=== PATIENT | male | born 1940 | race Caucasian/White ===

== ENCOUNTER 2017-08-02 10:03 | Inpatient (IN) | payer MEDICARE, BC ==
[~2017-08-02] VITALS: Ht 188 cm; Wt 90.2 kg
[~2017-08-02 10:03] MED LIST: NO HOME MEDICATIONS
[2017-09-02] VITALS (11 sets, daily range): BP systolic 100–147; BP diastolic 56–78; PULSE 50–76; TEMP 97.7
[2017-09-02] MEDS ORDERED: VITAMIN C500 MG PO (10:58)
[2017-09-02] MEDS ORDERED: FOLIC ACID 40400 MCG PO (10:58)
[2017-09-02] MEDS ORDERED: FERROUS SU325 MG/TAB PO (10:58)
[2017-09-03] VITALS (7 sets, daily range): BP systolic 118–159; BP diastolic 66–87; PULSE 66–102; TEMP 97.8–100
[2017-09-04 04:21] VITALS: BP 150/81; PULSE 91; TEMP 100.8; TEMP 99.1; TEMP 99.6
[2017-09-04 07:54] VITALS: BP 156/81; PULSE 94; TEMP 99.8
[2017-09-04 11:41] VITALS: BP 129/71; PULSE 92; TEMP 99.4
[2017-09-04 15:34] VITALS: BP 131/71; PULSE 64; TEMP 98.2
[2017-09-04 19:59] VITALS: BP 140/77; PULSE 115; TEMP 98
[2017-09-05 03:54] VITALS: BP 143/69; PULSE 87; TEMP 98.5
[2017-09-05] MEDS ORDERED: XARELTO10 MG PO (06:50)
[2017-09-05] MEDS ORDERED: NORCO 325 MG-7.1 TAB PO (06:50)
[2017-09-05] MEDS ORDERED: ROXICODONE 55 MG/TAB PO (06:51)
[2017-09-05 08:35] VITALS: BP 139/74; PULSE 86; TEMP 97.7
[2017-09-05 11:35] VITALS: BP 124/60; PULSE 84; TEMP 99.1
== END 2017-09-05 12:18 | disposition home or self-care (01) | DRG 470 ==
LOC: JCC 09-02 07:30
PROVIDERS: Orthopaedic Surgery
PROC: 0SRC0J9 Replacement of Right Knee Joint with Synthetic Substitute, Cemented, Open Approach (ICD-10-PCS; principal; 2017-09-02 12:45)
DX: M17.11 Unilateral primary osteoarthritis, right knee (principal); I10 Essential (primary) hypertension
CPT/HCPCS: C1713; C1776; J0690; J2250; J2270; J2274; J2550; J2704; J3010; J7030; J7042

== ENCOUNTER 2020-07-15 08:04 | Day surgery (SDC) | payer MEDICARE, BC ==
[2020-07-15] VITALS (11 sets, daily range): BP systolic 105–134; BP diastolic 44–75; PULSE 57–66; TEMP 98
[~2020-07-15] VITALS: Ht 188 cm; Wt 85.4 kg
[~2020-07-15 08:04] MED LIST changes: +FERROUS SU325 MG/TAB PO; +FOLIC ACID 40400 MCG PO; +NORCO 325 MG-7.1 TAB PO; +ROXICODONE 55 MG/TAB PO; +VITAMIN C500 MG PO; +XARELTO10 MG PO
[2020-07-15] MEDS ORDERED: CRESTOR 10MG10 MG PO (09:06)
[2020-07-15] MEDS ORDERED: ASPIRIN E.C. 8181 MG PO (09:07)
[2020-07-15] MEDS ORDERED: NORVASC2.5 MG PO (09:07)
[2020-07-15] MEDS ORDERED: NATURAL POTASS595 MG PO (09:08)
[2020-07-15] MEDS ORDERED: VITAMIN D31000 I1 PO (09:09)
[2020-07-15 09:19] LABS: HEMOGLOBIN 11.5 g/dl (13.5-18.0); INR 1.1 (0.8-3.0); MEAN CELL VOLUME 97 fl (80.0-100.0); MEAN CORPUSCULAR HEMOGLOBIN 31 pg (27.0-31.0); MEAN CORPUSCULAR HGB CONC 31 g/dl (33.0-37.0); MEAN PLATELET VOLUME 9.1 fl (7.4-10.4); PLATELET COUNT 144 K/mm3 (130-400); PROTHROMBIN TIME 12.1 SECONDS (9.7-12.8); RED BLOOD COUNT 3.77 M/mm3 (4.20-5.60); REDCELL DISTRIBUTION WIDTH-CV 14.6 % (11.5-14.5)
[2020-07-15 09:22] LABS: HEMATOCRIT 36.6 % (42.0-52.0); PARTIAL THROMBOPLASTIN TIME 30.6 SECONDS (26.0-37.0)
[2020-07-15 09:24] LABS: CALCIUM 8.4 mg/dL (8.4-10.2); CREATININE, serum 1.03 (0.66-1.25); POTASSIUM 4.5 mmol/L (3.4-5.0)
--- NOTE | 2020-07-15 12:08 | NUR ---
SEE MERGE FOR ALL MEDICATION ADMINISTRATION TIMES, INTRA AND POST SEDATION ASSESSMENTS
--- NOTE | 2020-07-15 16:20 | NUR ---
PT READY to go home. TR band has been deflated with no problem. site dressed with bandaid, folded 2x2 and coban. cms intact distal. I have reviewed dc instructions and fu instructions wtih pt and . no questions. pt had eaten lunch, he has been up and ambulatory with no problems, gait is steady. iv is dc'd with cath intact dressing applied. to exit via wheelchair.
== END 2020-07-15 16:20 | disposition home or self-care (01) ==
LOC: COL.CAR 08:04
PROVIDERS: Internal Medicine Cardiovascular Disease
DX: I10 Essential (primary) hypertension (principal); I25.10 Atherosclerotic heart disease of native coronary artery without angina pectoris; I73.9 Peripheral vascular disease, unspecified; R06.02 Shortness of breath; E78.5 Hyperlipidemia, unspecified; Z79.82 Long term (current) use of aspirin; Z79.899 Other long term (current) drug therapy; Z20.822 Contact with and (suspected) exposure to COVID-19
CPT/HCPCS: J1644; J2250; J3010; J7030

== ENCOUNTER → 2021-04-03 | Outpatient (CLI) | payer MEDICARE, BC ==
[~2021-04-03] MED LIST changes: +ASPIRIN E.C. 8181 MG PO; +CRESTOR 10MG10 MG PO; +NATURAL POTASS595 MG PO; +NORVASC2.5 MG PO; +VITAMIN D31000 I1 PO
== END ==
LOC: COL.PUL 10:00
DX: R06.02 Shortness of breath (principal)
CPT/HCPCS: J7674

== ENCOUNTER 2021-08-23 14:53 | Inpatient (IN) | payer MEDICARE, BC ==
[~2021-08-23] VITALS: Ht 193 cm; Wt 82.7 kg
[2021-08-23] MEDS ORDERED: TRELEGY ELLIPT1 EACH IH (17:12)
[2021-08-23 17:16] VITALS: BP 138/67; PULSE 83; TEMP 98.7
--- NOTE | 2021-08-23 17:25 | NUR ---
PT ARRIVED TO UNIT FROM [facility] - TRANSPORTED BY EMS. ADMISSION ASSESSMENT AND INTAKE COMPLETED. AT BEDSIDE. TELE IS ON. SEIZURE PADS ON BED. ORIENTATION TO ROOM/UNIT PROVIDED. PT HAD NO FURTHER QUESTIONS
[2021-08-23 17:57] LABS: ALBUMIN 3.9 gm/dL (3.4-4.8); BILIRUBIN,TOTAL 1.1 mg/dL (0.2-1.2); CREATININE, serum 1.66 mg/dL (0.72-1.25); POTASSIUM 4.5 mmol/L (3.5-4.5); TOTAL PROTEIN 6.8 gm/dL (6.2-8.1)
[2021-08-23 17:59] LABS: HEMATOCRIT 38.3 % (42.0-52.0); HEMOGLOBIN 12.5 g/dl (13.5-18.0); MEAN CELL VOLUME 98 fl (80.0-100.0); MEAN CORPUSCULAR HEMOGLOBIN 32 pg (27-31); MEAN CORPUSCULAR HGB CONC 33 g/dl (33.0-37.0); MEAN PLATELET VOLUME 9.3 fl (7.4-10.4); PLATELET COUNT 123 K/mm3 (130-400); RED BLOOD COUNT 3.93 M/mm3 (4.20-5.60); REDCELL DISTRIBUTION WIDTH-CV 15.2 % (11.5-14.5)
[2021-08-23 18:36] LABS: INR 1.2 (0.8-3.0)
--- NOTE | 2021-08-23 19:00 | NUR ---
RECEIVED CHANGE OF SHIFT REPORT FROM DAY SHIFT RN.
--- NOTE | 2021-08-23 19:45 | NUR ---
DECREASED ROM TO RHIP D/T PAIN WITH MOVEMENT/FX R HIP. DENIES CHEST PAIN/SOA/NUMBNESS&TINGLING TO EXTREMITIES AT THIS TIME. REQUESTED AND GIVEN PAIN MEDS FOR R HIP PAIN, SEE APR. ICE CONTINUES TO R HIP FOR COMFORT. OXYGEN PER NASAL CANNULA CONTINUES AT THIS TIME. AT BEDSIDE.
[2021-08-23 20:13] VITALS: BP 133/63; PULSE 77; TEMP 98.6
[2021-08-24] VITALS (8 sets, daily range): BP systolic 118–142; BP diastolic 63–69; PULSE 63–89; TEMP 97.6–98.5
[2021-08-24 06:19] LABS: BASO % 0.7 % (0.0-2.0); EOS % 0.7 % (0.0-4.0); GRAN # 3.7 K/mm3 (1.4-6.5); GRAN % 64.4 % (42.2-75.2); LYMPH # 1.1 K/mm3 (1.2-3.4); LYMPH % 19.1 % (20.0-51.0); MEAN CELL VOLUME 97 fl (80.0-100.0); MEAN CORPUSCULAR HEMOGLOBIN 31 pg (27-31); MEAN CORPUSCULAR HGB CONC 32 g/dl (33.0-37.0); MEAN PLATELET VOLUME 9.7 fl (7.4-10.4); MONO # 0.9 K/mm3 (0.1-0.6); MONO % 14.9 % (1.7-9.3); PLATELET COUNT 104 K/mm3 (130-400); RED BLOOD COUNT 3.51 M/mm3 (4.20-5.60); REDCELL DISTRIBUTION WIDTH-CV 15.2 % (11.5-14.5)
[2021-08-24 06:39] LABS: ALBUMIN 3.3 gm/dL (3.4-4.8); CALCIUM 8.2 mg/dL (8.4-10.2); CREATININE, serum 1.66 mg/dL (0.72-1.25); MAGNESIUM 1.7 mg/dL (1.6-2.6); PHOSPHOROUS 3.5 mg/dL (2.3-4.7); POTASSIUM 4.6 mmol/L (3.5-4.5)
--- NOTE | 2021-08-24 07:18 | NUR ---
CHANGE OF SHIFT REPORT GIVEN TO DAY SHIFT RNKAMILA.
[2021-08-24 09:49] LABS: COLLECTION METHOD CLEAN CATCH
[2021-08-24 09:59] LABS: MUCOUS Present (NOT PRESENT); PH 6 (5-8); SQUAMOUS EPITHELIAL None Seen /hpf (0-10); URINE APPEARANCE Clear (CLEAR/HAZY); URINE BACTERIA Rare /hpf (NONE SEEN); URINE BILIRUBIN Negative (NEGATIVE); URINE BLOOD Negative (NEGATIVE); URINE COLOR Amber (YELLOW); URINE GLUCOSE Negative (NEGATIVE); URINE KETONE Trace (NEGATIVE); URINE LEUKOCYTE ESTERASE Negative (NEGATIVE); URINE NITRATE Negative (NEGATIVE); URINE PROTEIN(semi-quant) Negative (NEGATIVE); URINE RBC 0-2 /hpf (0-2); URINE WBC 0-2 /hpf (0-2)
--- NOTE | 2021-08-24 12:29 | NUR ---
manufacturing worker met with patient and patient's Tsering ([phone]) at bedside to complete intake and discuss discharge plan. Patient states that [place] [facility] and . Patient is independent with his ADL's. He does not utilize any DME to assist with mobility and has no home oxygen needs. Patient verbalizes that from the moment he is up he works out in his yard "until ". PCP is Dr. Stokes and they utilize [facility] in for prescription needs. Both he and his each have DPOA-HC established listing his daughter Zeina. SW spoke with the patient about the need for post acute rehab after surgery. Patient verbalized " i know i'm old, but i don't want to go to any old folks home". Spoke with the patient about our IPR as well. Both the patient and his are interested in this as their first choice and [facility] as a second choice. IPR director contacted with referral. Patients clinical information and referral faxed to [facility]. Discharge plan: IPR vs. SNF
--- NOTE | 2021-08-24 15:09 | NUR ---
1500 PATIENT LEFT FLOOR TO SX BY KA[facility]
--- NOTE | 2021-08-24 19:03 | NUR ---
PATIENT ARRIVED FROM PACU @ 1815 IN STABLE CONDITION. VITALS WNL, HOOKED UP TO POST OP VITALS, SCDS ON, TORIBIO PATENT. IV FLUIDS STARTED. PATIENT REQUIRING 2LNC AT THIS TIME. PATIENT HAS NO COMPLAINTS OR PAIN AT THIS TIME. 1ST POST OP VITAL ENTERED, REPORT GIVEN TO TATO DENNIS.
--- NOTE | 2021-08-24 19:34 | NUR ---
PT LAYING IN BED RESTING QUIETLY. IN ROOM. PT DENIES PAIN. ENDORSES SHIVERING AND FOGGINESS.
--- NOTE | 2021-08-24 21:09 | NUR ---
PT RESTING QUIETLY IN BED. ENDORSES PAIN IN LEFT SHOULDER. K-PAD APPLIED. DENIES RIGHT HIP PAIN AT THIS TIME. IN ROOM VISITING.
[2021-08-25 03:14] VITALS: BP 126/58; PULSE 78; TEMP 97.6
[2021-08-25 06:24] LABS: BASO % 0.6 % (0.0-2.0); EOS % 0.3 % (0.0-4.0); GRAN # 5.3 K/mm3 (1.4-6.5); GRAN % 79.2 % (42.2-75.2); HEMOGLOBIN 10.6 g/dl (13.5-18.0); LYMPH # 0.6 K/mm3 (1.2-3.4); LYMPH % 8.9 % (20.0-51.0); MEAN CELL VOLUME 98 fl (80.0-100.0); MEAN CORPUSCULAR HEMOGLOBIN 31 pg (27-31); MEAN CORPUSCULAR HGB CONC 32 g/dl (33.0-37.0); MONO # 0.7 K/mm3 (0.1-0.6); MONO % 10.7 % (1.7-9.3); PLATELET COUNT 97 K/mm3 (130-400); RED BLOOD COUNT 3.39 M/mm3 (4.20-5.60)
[2021-08-25 06:44] LABS: HEMATOCRIT 33.3 % (42.0-52.0)
[2021-08-25 06:53] LABS: CREATININE, serum 1.27 mg/dL (0.72-1.25); MAGNESIUM 1.6 mg/dL (1.6-2.6); PHOSPHOROUS 2.8 mg/dL (2.3-4.7); POTASSIUM 4.5 mmol/L (3.5-4.5)
[2021-08-25 08:02] VITALS: BP 125/70; PULSE 94; TEMP 98.8
--- NOTE | 2021-08-25 09:54 | NUR ---
UPON ENTERING PATIENTS ROOM AT 0730AM AFTER SHIFT CHANGE, ROSA HAD NO O2 ON. VITALS CHECKED. O2 SAT 87%, TRIED 1L BUT PATIETN WOULD NOT GO UP 90. PATIENT IS CURRENTLY ON 2LNC.
[2021-08-25 12:00] VITALS: BP 117/58; PULSE 85; TEMP 98
--- NOTE | 2021-08-25 14:15 | NUR ---
CRITICAL CARE CALLED MULTIPLE TIMES EARLIER IN THE DAY ABOUT PATIENTS HR, HOWEVER, EACH TIME I OR THE PCT WERE IN THE ROOM, ASSISTING THE PT TO THE TOILET. HOWEVER AT 1315 I NOTICED THE PATIENTS HR SUSTAINING IN THE 130'S. I IMMEDIATELY INFORMED DR LAIRD @ 1319, SOON AFTER HE PUT IN AN ORDER. MEDICATION GIVEN, JATINDER HR NOW 101.
[2021-08-25 14:33] LABS: COLLECTION METHOD CLEAN CATCH
[2021-08-25 14:42] LABS: MUCOUS Present (NOT PRESENT); PH 5 (5-8); SQUAMOUS EPITHELIAL None Seen /hpf (0-10); URINE APPEARANCE Hazy (CLEAR/HAZY); URINE BACTERIA None Seen /hpf (NONE SEEN); URINE BILIRUBIN Negative (NEGATIVE); URINE BLOOD 3+ (NEGATIVE); URINE COLOR Amber (YELLOW); URINE GLUCOSE Negative (NEGATIVE); URINE KETONE Trace (NEGATIVE); URINE LEUKOCYTE ESTERASE Negative (NEGATIVE); URINE NITRATE Negative (NEGATIVE); URINE PROTEIN(semi-quant) 2+ (NEGATIVE); URINE RBC >50 /hpf (0-2); URINE UROBILINOGEN Negative (NEGATIVE)
[2021-08-25 15:35] VITALS: BP 112/55; PULSE 91; TEMP 99.5
[2021-08-25 20:30] VITALS: BP 119/57; PULSE 82; TEMP 98.7
--- NOTE | 2021-08-25 20:53 | NUR ---
PT IN BED. IS ALERT AND ORIENTED X4. HAS IVF TO LEFT FOREARM, INFUSING WITHOUT PROBLEM. TAKES HS MEDS INCLUDING NORCO FOR PAIN. RT HIP WITH MARKELL DRSCholo D/I. TORIBIO TO BSD WITH NATASHA URINE. UNABLE TO LIFT RT LEG BUT DOES ANKLE PUMPS WITHOUT PROBLEM.
[2021-08-26 00:21] VITALS: BP 102/58; PULSE 82; TEMP 99.4
--- NOTE | 2021-08-26 03:55 | NUR ---
PT AWAKE, SITTING AT EDGE OF BED. REPORTS BACK AND RT LEG PAIN. MEDICATED WITH NORCO AT THIS TIME.
[2021-08-26 03:58] VITALS: BP 112/70; PULSE 83; TEMP 98.1
--- NOTE | 2021-08-26 04:15 | NUR ---
ASSISTED BACK TO LAYING DOWN, NEEDS HELP WITH RT LEG.
[2021-08-26 05:34] LABS: BASO % 0.5 % (0.0-2.0); EOS # 0.1 K/mm3 (0.0-0.7); GRAN # 4.5 K/mm3 (1.4-6.5); GRAN % 74.1 % (42.2-75.2); LYMPH # 0.6 K/mm3 (1.2-3.4); LYMPH % 10.4 % (20.0-51.0); MEAN CELL VOLUME 95 fl (80.0-100.0); MEAN CORPUSCULAR HGB CONC 33 g/dl (33.0-37.0); MEAN PLATELET VOLUME 9.2 fl (7.4-10.4); MONO # 0.8 K/mm3 (0.1-0.6); MONO % 13.7 % (1.7-9.3); PLATELET COUNT 85 K/mm3 (130-400); RED BLOOD COUNT 2.94 M/mm3 (4.20-5.60); REDCELL DISTRIBUTION WIDTH-CV 14.8 % (11.5-14.5)
[2021-08-26 05:53] LABS: HEMOGLOBIN 9.3 g/dl (13.5-18.0); MEAN CORPUSCULAR HEMOGLOBIN 32 pg (27-31)
[2021-08-26 05:54] LABS: ALBUMIN 2.6 gm/dL (3.4-4.8); CALCIUM 8.1 mg/dL (8.4-10.2); CREATININE, serum 1.39 mg/dL (0.72-1.25); MAGNESIUM 1.7 mg/dL (1.6-2.6); PHOSPHOROUS 2.5 mg/dL (2.3-4.7); POTASSIUM 4.5 mmol/L (3.5-4.5)
[2021-08-26 07:18] VITALS: BP 124/52; PULSE 80; TEMP 98.1
[2021-08-26] MEDS ORDERED: ASPI325T6 PO (09:33)
[2021-08-26] MEDS ORDERED: ROXICODONE 55 MG/TAB PO (09:34)
[2021-08-26] MEDS ORDERED: TYLENOL 500MG500 MG PO (09:40)
== END 2021-08-26 12:00 | DRG 522 ==
LOC: SURG 14:53
PROVIDERS: Orthopaedic Surgery Sports Medicine; Physician Assistant; ADMIT Internal Medicine
PROC: 0SRR0J9 Replacement of Right Hip Joint, Femoral Surface with Synthetic Substitute, Cemented, Open Approach (ICD-10-PCS; principal; 2021-08-24 15:30)
DX: S72.011A Unspecified intracapsular fracture of right femur, initial encounter for closed fracture (principal); N17.9 Acute kidney failure, unspecified; I25.10 Atherosclerotic heart disease of native coronary artery without angina pectoris; J44.9 Chronic obstructive pulmonary disease, unspecified; W18.39XA Other fall on same level, initial encounter; F41.9 Anxiety disorder, unspecified; E78.5 Hyperlipidemia, unspecified; I12.9 Hypertensive chronic kidney disease with stage 1 through stage 4 chronic kidney disease, or unspecified chronic kidney disease; N18.9 Chronic kidney disease, unspecified; D69.6 Thrombocytopenia, unspecified; R09.02 Hypoxemia; D64.89 Other specified anemias; Y93.89 Activity, other specified; Z90.89 Acquired absence of other organs; Z79.82 Long term (current) use of aspirin; Y92.89 Other specified places as the place of occurrence of the external cause; Z23 Encounter for immunization
CPT/HCPCS: 99223-AI; 99231-AI; 99233-AI; A9284; C1776; J0690; J2405; J2704; J3010; J7030

== ENCOUNTER 2021-08-26 12:27 | Inpatient (IN) | payer MEDICARE, BC ==
[~2021-08-26] VITALS: Ht 190.5 cm; Wt 89.2 kg
[~2021-08-26 12:27] MED LIST changes: +ASPI325T6 PO; +TRELEGY ELLIPT1 EACH IH; +TYLENOL 500MG500 MG PO
--- NOTE | 2021-08-26 15:54 | NUR ---
Patient recently moved over from Surgical, [place], PCP is [facility], independent with ADL's, and does not utilize DME. DPOA/HC is daughter Zeina. SW will continue to follow. DC plan: home
[2021-08-26 17:09] VITALS: BP 129/62; PULSE 77; TEMP 99.1
--- NOTE | 2021-08-26 19:10 | NUR ---
RECEIVED CHANGE OF SHIFT REPORT FROM DAY SHIFT RN. PATIENT RESTING IN BED, EXIT ALARM ON, CALL LIGHT WITHIN REACH. DENIES ANY NEEDS CURRENTLY.
--- NOTE | 2021-08-26 20:19 | NUR ---
[facility] WHILE IN IPR, MEDS TO BE ORDERED BY PROVIDER.
--- NOTE | 2021-08-26 22:26 | NUR ---
PATIENT REFUSES TO WEAR SCDs.
[2021-08-27 05:20] VITALS: BP 120/62; PULSE 69; TEMP 98.6
--- NOTE | 2021-08-27 07:12 | NUR ---
CHANGE OF SHIFT REPORT GIVEN TO DAY SHIFT RNDENISSE.
[2021-08-27 17:27] VITALS: BP 102/67; PULSE 77; TEMP 99
--- NOTE | 2021-08-27 19:00 | NUR ---
RECEIVED CHANGE OF SHIFT REPORT FROM DAY SHIFT RN.
[2021-08-28 06:33] VITALS: BP 122/68; PULSE 75; TEMP 99.1
--- NOTE | 2021-08-28 07:38 | NUR ---
CHANGE OF SHIFT REPORT GIVEN TO DAY SHIFT RN, STEPHENIE. PATIENT RESTED IN BED MOST OF NIGHT AFTER TAKING PRN PAIN MEDS. TEDS TO BLE, EXIT ALARM ON WHEN IN BED. NO OTHER NEEDS REPORTED DURING NIGHT AFTER HS MEDS TAKEN.
--- NOTE | 2021-08-28 09:27 | NUR ---
Pt. out of room to ambulate in hallway with PT
--- NOTE | 2021-08-28 13:00 | NUR ---
Pt. reporting that he has had difficulty urinating since riggs catheter was removed on/around 08/25 s/p hip surgery. Bladder scan revealed 444 mL urine in bladder. Will continue to monitor
--- NOTE | 2021-08-28 14:07 | NUR ---
Pt assisted from bed to recliner. BLE elevated on footrest and pillow placed under RLE for comfort. is in the room to visit. Pt. denies pain/discomfort. Denies additional needs. Call light is within his reach. Chair alarm is on
--- NOTE | 2021-08-28 15:22 | NUR ---
Dr. Stratton here to see pt - notified of patient complaint of having difficulty with urination. See Order/EMar for new orders
--- NOTE | 2021-08-28 16:02 | NUR ---
Straight cath output = 700 mL dark yellow urine. Initial dose Flomax given as ordered
[2021-08-28 16:51] VITALS: BP 117/57; PULSE 90; TEMP 100.4
--- NOTE | 2021-08-28 18:48 | NUR ---
RECEIVED CHANGE OF SHIFT REPORT FROM DAY SHIFT RN.
[2021-08-29 05:46] VITALS: BP 114/69; PULSE 65; TEMP 98.1
[2021-08-29 06:15] LABS: BASO % 0.6 % (0.0-2.0); EOS # 0.2 K/mm3 (0.0-0.7); EOS % 3.8 % (0.0-4.0); GRAN # 2.9 K/mm3 (1.4-6.5); GRAN % 62.2 % (42.2-75.2); LYMPH # 0.8 K/mm3 (1.2-3.4); LYMPH % 16.8 % (20.0-51.0); MEAN CELL VOLUME 96 fl (80.0-100.0); MEAN CORPUSCULAR HGB CONC 33 g/dl (33.0-37.0); MEAN PLATELET VOLUME 9.5 fl (7.4-10.4); MONO # 0.8 K/mm3 (0.1-0.6); MONO % 16.4 % (1.7-9.3); PLATELET COUNT 123 K/mm3 (130-400); RED BLOOD COUNT 2.89 M/mm3 (4.20-5.60); REDCELL DISTRIBUTION WIDTH-CV 14.8 % (11.5-14.5)
[2021-08-29 06:18] LABS: HEMATOCRIT 27.8 % (42.0-52.0); HEMOGLOBIN 9.2 g/dl (13.5-18.0); MEAN CORPUSCULAR HEMOGLOBIN 32 pg (27-31)
[2021-08-29 06:27] LABS: CALCIUM 8.3 mg/dL (8.4-10.2); CREATININE, serum 1.25 mg/dL (0.72-1.25); MAGNESIUM 1.7 mg/dL (1.6-2.6); POTASSIUM 4.2 mmol/L (3.5-4.5)
--- NOTE | 2021-08-29 07:08 | NUR ---
CHANGE OF SHIFT REPORT GIVEN TO DAY SHIFT RNDENISSE.
--- NOTE | 2021-08-29 14:36 | NUR ---
Admission QIM scores were reviewed by the team. Code of 5 chosen for oral hygiene was determined by team discussion to be the most usual performance for this patient during the assessment period. Code of 3 chosen for sit to lying was determined by team discussion to be the most usual performance before interventions for this patient during the assessment period. Code of 4 chosen for lying to sitting on side of bed was determined by team discussion to be the most usual performance for this patient during the assessment period. Code of 3 for sit to stand was determined by team discussion to be the most usual performance for this patient during the assessment period. Code of 88 chosen for walk 50 feet w/ 2 turns was determined by team discussion to be the most usual performance for this patient during the assessment period. Code of 88 chosen for walk 150 feet was determined by team discussion to be the most usual performance for this patient during the assessment period. Code of 88 chosen for 4 step was determined by team discussion to be the most usual performance before interventions for this patient during the assessment period.--Liusana Davis, PD
--- NOTE | 2021-08-29 14:44 | NUR ---
Roller Staker met with patient and patient's , Kristy to check in. Patient reports things are overall going well, but he has trouble at night. Patient advised however that staff overnight have been very helpful. Kristy provided her phone number, . SW will continue to follow for discharge needs.
--- NOTE | 2021-08-29 15:23 | NUR ---
Family meeting scheduled for tomorrow at 1015.
[2021-08-29 17:07] VITALS: BP 111/64; PULSE 87; TEMP 99.2
--- NOTE | 2021-08-29 19:08 | NUR ---
RECEIVED CHANGE OF SHIFT REPORT FROM DAY SHIFT RN. PATIENT UP IN CHAIR DURING REPORT, AGREED TO TAKE PAIN MEDS FOR COMFORT WHEN ENCOURAGED TO CONTINUE WITH PAIN MEDS FOR COMFORT MAINTENANCE. DENIES CHEST PAIN/SOA/NAUSEA AT THIS TIME.
[2021-08-30 06:14] VITALS: BP 112/61; PULSE 61; TEMP 98.5
--- NOTE | 2021-08-30 06:56 | NUR ---
Shift report received from logistics coordinator RN. Pt. sleeping supine in bed. Call light is within his reach
--- NOTE | 2021-08-30 06:56 | NUR ---
CHANGE OF SHIFT REPORT GIVEN TO DAY SHIFT RNSTEPHENIE. PATIENT UP TO BATHROOM WITH STEADY GAIT WITH AMBULATION DURING NIGHT. DENIES NUMBNESS/TINGLING TO EXTREMITIES, DENIED CHEST PAIN/SOA/NAUSEA THROUGH THE NIGHT WELL.
--- NOTE | 2021-08-30 09:49 | NUR ---
Initial visit; Patient thanked Allied Health Professional for looking in on him and is more worried about his being home alone than he is himself. He is talking to his Renewable Energy Consultant for help to find someone or several people who can stay with her while he is hospitalized. Patient requests that [employer] Professional keep Tsering in her prayers.
--- NOTE | 2021-08-30 10:09 | NUR ---
Pt sitting up in recliner with BLE elevated on footrest. He showered and shaved this morning with OT. He reports minimal right hip pain - prn pain medication was given this morning. He denies additional needs at this time. Call light is within his reach
--- NOTE | 2021-08-30 11:07 | NUR ---
Pt. attempting to urinate - he was only able to dribble a few drops of urine out. Bladder scan done. Post void residual = 309 mL
--- NOTE | 2021-08-30 12:10 | NUR ---
Pt attempting to urinate but reports feeling unable. Bladder scan residual = 325
--- NOTE | 2021-08-30 13:00 | NUR ---
16Fr riggs cath inserted as ordered using sterile technique. No difficulty/trauma/bleeding. Bulb inflated with 10mL sterile water. Immediate return of approx 500 mL urine noted in drainage bag. at bedside. Pt. assisted back to recliner at his request. He denies additional needs. Call light is within his reach
--- NOTE | 2021-08-30 13:12 | NUR ---
Cloth Finisher attended patient/family conference which included patient's , Kristy at bedside. JENNIFER Lieberman Director opened the meeting followed by report from therapy on progress. Patient advised Dr. Avalos saw him just before the meeting. Discharge date is set for Saturday and recommendation is for outpatient therapy. Patient would like this set up at [facility] as he and his have been there before. SW followed up with patient to review team conference notes. Patient has no further questions at this time, however worries about his being home alone.
--- NOTE | 2021-08-30 15:33 | NUR ---
Pt sitting up in recliner with BLE elevated on footrest. remains in the room. Rodriguez cath patent to drainage with clear, yellow urine noted in bag. Pt. denies pain/discomfort. Denies further needs. Call light is within his reach
[2021-08-30 17:15] VITALS: BP 124/69; PULSE 82; TEMP 98.2
--- NOTE | 2021-08-30 18:03 | NUR ---
Pt reporting pain in/around urinary meatus. Site assessed - no redness, no swelling/irritation, no drainage noted. Stat locked repositioned from right thigh to left thigh. Cath care completed by JUMA. Urine is noted to be dark yellow. Encouraged pt. to increase his fluid intake - he voiced understanding. Will continue to monitor
--- NOTE | 2021-08-31 03:30 | NUR ---
Assessment and medication administration completed without difficulty. Pt has had complaints of pain at his riggs catheter site. There is no redness, swelling or irritation noted at the meatus. Pain medication given per EMAR. Pt has had a quiet evening otherwise. Currently resting quietly in bed, call light within reach. Will continue to monitor.
[2021-08-31 05:48] VITALS: BP 101/59; PULSE 76; TEMP 97.8
[2021-08-31 14:15] LABS: PH 5 (5-8); URINE APPEARANCE Clear (CLEAR/HAZY); URINE BILIRUBIN Negative (NEGATIVE); URINE COLOR Yellow (YELLOW); URINE GLUCOSE Negative (NEGATIVE); URINE KETONE Negative (NEGATIVE); URINE PROTEIN(semi-quant) 1+ (NEGATIVE)
[2021-08-31 14:16] LABS: MUCOUS Present (NOT PRESENT); SQUAMOUS EPITHELIAL 0-2 /hpf (0-10); URINE BACTERIA Rare /hpf (NONE SEEN); URINE BLOOD 3+ (NEGATIVE); URINE LEUKOCYTE ESTERASE Trace (NEGATIVE); URINE NITRATE Negative (NEGATIVE); URINE RBC >50 /hpf (0-2)
[2021-08-31 14:26] LABS: COLLECTION METHOD CLEAN CATCH
[2021-08-31 17:41] VITALS: BP 122/73; PULSE 88; TEMP 97.8
--- NOTE | 2021-08-31 21:29 | NUR ---
Pt expressed to this nurse that he was feeling anxious and "fired up". I inquired as to what he was anxious and he stated "just everything". PA consulted and new order for Ativan were given. Medication given per EMAR. Will continue to monitor.
--- NOTE | 2021-09-01 01:37 | NUR ---
Assessment and medication administration completed without difficulty. Pt had a bought of anxiety this shift; PA was contacted and PRN medication was ordered. Pt is A&Ox4; pt exhibited some aggression and frustration due to his anxiety. Pt raised his voice at this nurse and expressed that he felt that "nobody cares about me, seems like I've been forgotten." Pt was reassured that aid would be available shortly. Pt expressed understanding and apologized to staff. Medication was given per EMAR. Pt currently resting quietly in bed, all other needs met at this time. Call light within reach, will continue to monitor.
[2021-09-01 05:27] VITALS: BP 113/61; PULSE 73; TEMP 98.2
--- NOTE | 2021-09-01 10:10 | NUR ---
PATIENT DOING WELL THIS MORNING UPON ASSESSMENT. EXPRESSED THAT HE HAD A DIFFICULT TIME LAST EVENING WITH ANXIETY AND LONG WAIT PERIOD FOR MEDICATION FOR THIS. APOLIGIZED TO PATIENT FOR THIS AND EXPLAINED PROCESS OF CALLING AND RECIEIVING ORDERS FROM PROVIDERS CRIMINALIST. PATIENT STATES HE WOULD FEEL MORE COMFORTABLE IF COULD STAY WITH HIM AT NIGHT, WILL ATTEMPT APPROVAL FOR THIS. PAIN TO RIGHT HIP POST FX REPAIR IS WELL CONTROLLED WITH MEDS, RIGHT HIP HAS AQUACELL DRESSING IN PLACE. TORIBIO STILL IN PLACE TO MANAGE URINE RETENTION. NO ADVERSE SYMPTOMS FROM ANTIBIOTIC TX FOR UTI REPORTED. PARTICIPATED IN THERAPY TODAY WITHOUT ISSUE. WBAT WITH USE OF WALKER, GAIN STEADY. GOOD APPETITE AT MEAL TIMES. TAKES MEDS WHOLE. CONTINENT OF B/B. A&O X4, PLEASANT. VITALS WNL.
--- NOTE | 2021-09-01 16:18 | NUR ---
Agricultural Sciences Professor checked in with patient and before the weekend. No questions or concerns at this time. Patient is agreeable to have FWW ordered through [facility] and advised she can pick it up prior to discharge.
[2021-09-01 18:09] VITALS: BP 107/57; PULSE 80; TEMP 97.8
--- NOTE | 2021-09-02 04:32 | NUR ---
Pt has had an uneventful shift thus far. Assessment and medication administration completed without difficulty. Pt has had no complaints of pain throughout the shift. Rodriguez cath is still DD and draining well. All other needs are met at this time, call light within reach.
[2021-09-02 05:47] VITALS: BP 103/62; PULSE 74; TEMP 98.6
--- NOTE | 2021-09-02 07:25 | NUR ---
Shift report received from lead advisor RN Ting. Pt. sleeping in supine position. HOB is slightly elevated. Call light is within his reach
--- NOTE | 2021-09-02 09:41 | NUR ---
Pt. sitting up in recliner. Aquacell right hip is CDI. He dressed independently using adaptive equipment. He denies pain/discomfort. Denies additional needs. Call light is within his reach
--- NOTE | 2021-09-02 16:26 | NUR ---
Pt sitting up in recliner. Assisted to bathroom using fww. Rodriguez cath is patent to drainage without dark yellow output. He denies pain/discomfort. here to visit
[2021-09-02 17:28] VITALS: BP 116/64; PULSE 77; TEMP 97.2
--- NOTE | 2021-09-03 03:17 | NUR ---
Pt has had an uneventful shift thus far. Assessment and medication administration completed without difficulty. Pt has had no complaint of pain, will continue to monitor. Pt currently resting quietly in bed, call light within reach. All other needs met at this time, will continue to monitor.
[2021-09-03 05:50] VITALS: BP 130/68; PULSE 69; TEMP 97.8
--- NOTE | 2021-09-03 09:58 | NUR ---
ASSESSMENT DONE ORDER. PATIENT IS ALERT X 4. NEED ASSISTANCE GETTING UP FROM BED AND CHAIR. ABLE TO WALK WTIH WALKER. USE JAMA HOSE FOR EDEMA ON LOWER EXTREMITIES. PATIENT HAS A SURGERIC BANDAGE(AQUACELL) IN PLACE THAT IS NOT TIME TO TAKE OFF. PATIENT HAD FEMORAL NECK FX AND RIGHT HIP HEMIATRROPLASTY. TORIBIO CATHETER FLOWING YELLOW URINE, NO ISSUE WITH BURNING SENSATION.
[2021-09-03 17:25] VITALS: BP 118/65; PULSE 76; TEMP 97.8
--- NOTE | 2021-09-03 20:31 | NUR ---
ASSESSMENT COMPLETE. PT. LYING IN BED WATCHING TV. A&O. NO COMPLAINTS OF PAIN. DRESSIG NTO RIGHT HIP CDI. TORIBIO SECURED AND DEPENDENT TO DRAINAGE WITH NATASHA COLORED URINE. CALL LIGHT IN REACH. NO FURHTER NEEDS AT THIS TIME.
--- NOTE | 2021-09-03 22:13 | NUR ---
PT. DRY HEAVING AND THROWING UP CLEAR STOMACH CONTENTS. ALSO COMPLAINING THAT HIS STOMACH IS "BURNING UP." VERENA CALLED AND NOTIFIED. SEE ORDERS.
--- NOTE | 2021-09-03 23:32 | NUR ---
PREVIOUS MEDICATIONS (PEPCID AND TUMS) OFFERED NO RELIEF TO PT. PT. STILL COMPLAINING OF BURNING SENSATION IN STOMACH, STATING IT'S THE WORST TUMMY ACHE HE'S EVER HAD. VERENA WAS CALLED AND NOTIFIED. SEE FURTHER ORDERS.
[2021-09-04] MEDS ORDERED: ROXICODONE 55 MG/TAB PO (01:20)
--- NOTE | 2021-09-04 01:30 | NUR ---
PT. DISCHARGED FROM IPR TO ROOM 342 ON SURGICAL FLOOR. BELONGS WENT WITH PT.
--- NOTE | 2021-09-04 02:01 | NUR ---
18 FR NG TUBE PLACED IN LEFT NARE. SUCTION SET TO LOW INTERMITTENT. PT. TOLERATED PROCEDURE WELL. X-RAY CALLED TO VERIFY PLACEMENT.
--- NOTE | 2021-09-04 07:53 | NUR ---
PATIENT CHART FOR IPR WAS NOT DISCHARGED OUT OF THE SYSTEM. DEPARTMENTS STILL DOCUMENTING ON PATIENT CHART FROM IPR AND NOT ABLE TO SEE NEW CHART ON SURGICAL FLOOR. CT CALLED LOOKING FOR MOST UP TO DATE LAB RESULTS THEY ARE ONLY SEEING THE IPR CHART THAT WAS NOT DISCHARGED BY ASPHALT ROLLER PERSON. UPDATED CT ON NEW LAB RESULTS OF THIS MORNING ON SURGICAL CHART. ALSO UNKNOWN TO THIS NURSE THAT A NEW CHART HAD BEEN CREATED IN SURGICAL. CALLED ADMISSIONS TO CORRECT. NOTIFIED CHARGE NURSE. PATIENT WAS GIVEN PO MEDS AND NG TUBE CLAMPED AT THIS TIME PER EMAR PO MEDS WERE DUE. NO ORDERS TO HOLD MEDS, NO NOTES TO HOLD MEDS WERE IN CHART.
--- NOTE | 2021-09-04 08:58 | NUR ---
AT THIS TIME I WILL FORMALLY DISCHARGE THIS PATIENT FROM [facility]. THIS PATIENT WAS DISCHARGED AND MOVED FROM [facility] DURING COMMUNITY HEALTH ADVISOR.
== END 2021-09-04 03:00 | disposition short-term general hospital (02) | DRG 561 ==
PROVIDERS: Physician Assistant; ADMIT Internal Medicine
DX: S72.011D Unspecified intracapsular fracture of right femur, subsequent encounter for closed fracture with routine healing (principal); R26.89 Other abnormalities of gait and mobility; D64.89 Other specified anemias; N18.9 Chronic kidney disease, unspecified; J44.9 Chronic obstructive pulmonary disease, unspecified; D69.6 Thrombocytopenia, unspecified; I25.10 Atherosclerotic heart disease of native coronary artery without angina pectoris; W01.0XXD Fall on same level from slipping, tripping and stumbling without subsequent striking against object, subsequent encounter; Z73.6 Limitation of activities due to disability; Z96.641 Presence of right artificial hip joint; Z79.891 Long term (current) use of opiate analgesic; Z79.899 Other long term (current) drug therapy; Z79.82 Long term (current) use of aspirin; Y92.096 Garden or yard of other non-institutional residence as the place of occurrence of the external cause; R33.9 Retention of urine, unspecified; F41.1 Generalized anxiety disorder; K59.00 Constipation, unspecified
CPT/HCPCS: A4314; J1170; J2270

== ENCOUNTER 2021-09-04 01:00 | Inpatient (IN) | payer MEDICARE, BC ==
[~2021-09-04] VITALS: Ht 190.5 cm; Wt 86.9 kg
[2021-09-04] MEDS ORDERED: ROXICODONE 55 MG/TAB PO (01:20)
--- NOTE | 2021-09-04 02:00 | NUR ---
PT. TO ROOM 342 FROM [facility] FOR [facility]OWEL OBSTRUCTION. PATIENT HAS TORIBIO SECURED AND DEPENDENT TO DRAINAGE. 18 FR NG TUBE WAS INSERTED AND CHEST XRAY VERIFIED PLACEMENT. PT. COMPLAINING OF ABDOMINAL PAIN /. DILIUID WAS GIVEN (SEE EMAR). BELONGINGS CAME WITH PATIENT. CALL LIGHT IN REACH. WILL CONTINUE TO MONITOR.
[2021-09-04 04:23] VITALS: BP 151/66; PULSE 83; TEMP 97.7
--- NOTE | 2021-09-04 06:24 | NUR ---
ATTEMPT TO REACH NEXT OF KIN AT NUMBER [phone] THREE TIMES WAS UNSECESSFUL.
--- NOTE | 2021-09-04 06:41 | NUR ---
TWO ATTEMPTS TO REACH DOCTOR VAZQUEZ TO UPDATE/CONSULT WAS UNSECCESSFUL.
[2021-09-04 07:06] LABS: HEMOGLOBIN 10.2 g/dl (13.5-18.0); MEAN CELL VOLUME 97 fl (80.0-100.0); MEAN CORPUSCULAR HEMOGLOBIN 31 pg (27-31); MEAN CORPUSCULAR HGB CONC 32 g/dl (33.0-37.0); MEAN PLATELET VOLUME 8.9 fl (7.4-10.4); PLATELET COUNT 288 K/mm3 (130-400); RED BLOOD COUNT 3.26 M/mm3 (4.20-5.60); REDCELL DISTRIBUTION WIDTH-CV 14.6 % (11.5-14.5)
[2021-09-04 07:20] LABS: ALBUMIN 3.2 gm/dL (3.4-4.8); BILIRUBIN,TOTAL 0.7 mg/dL (0.2-1.2); CREATININE, serum 1.18 mg/dL (0.72-1.25); HEMATOCRIT 31.6 % (42.0-52.0); MAGNESIUM 1.9 mg/dL (1.6-2.6); POTASSIUM 4.6 mmol/L (3.5-4.5); TOTAL PROTEIN 6.5 gm/dL (6.2-8.1)
--- NOTE | 2021-09-04 07:30 | NUR ---
CALL PLACED TO DR MAHONEY WHO IS SURGEON OPERATIONS AND MAINTENANCE SUPERVISOR. DUE TO DUPLICATE CHART CONFUSION I WAS UNABLE TO SEE IF CONSULT WAS CALLED FOR THIS PATIENT. CT CALLED ABOUT CT SCAN AND LAB RESULTS. CORRECTED THIS ISSUE AND CORRECT UP TO DATE LAB VALUES GIVEN SO CT SCAN CAN BE DONE TO CONFIRM SBO. NG TUBE PATENT AND IN PLACE ON LOW INT SUCTION. YELLOW GREEN DRAINAGE NOTED IN TUBING, NOTHING IN SUCITON CONTAINER AT THIS TIME. PATIENT STILL CONTINUES TO COMPLAIN OF MODERATE PAIN THAT HE STATES IS ALL OVER ABDOMEN. PAIN MEDICATION GIVEN PER CORRECT INPATIENT SURGICAL EMAR. MRI CALLED ASKING ABOUT ORDER LEAD MATERIAL HANDLER NURSE PLACED FOR NG TUBE PLACEMENT, XRAY ALREADY CONFIRMED CORRECT NG TUBE PLACEMENT THIS MORNING SO MRI IS NOT NEEDED AT THIS TIME
[2021-09-04 07:47] VITALS: BP 156/76; PULSE 82; TEMP 97.6
--- NOTE | 2021-09-04 08:03 | NUR ---
NOTE CONTINUED FROM SHIFT REPORT NOTE. PATIENT COMPLAINING OF PAIN UPON MORNING ASSESSMENT WELL. NOTE COMPLETED ON CHART ERRORS AND IPR CHART NOT BEING DISCHARGED FROM SYSTEM OR PATIENT CHART NOT BEING TRANSFERRED TO SURGICAL CHART BY TALENT REP WHEN TRANSFER TO SURGCIAL OCCURRED.
[2021-09-04 08:45] LABS: ANISOCYTOSIS 1+; BAND 11 % (0-10); BASOPHIL 1 % (0-2); LYMPHOCYTE 3 % (20.0-51.0); METAMYELOCYTE 1 % (0-0); NEUTROPHILS 80 % (42.0-75.2); PLATELET ESTIMATE NORMAL (NORMAL)
--- NOTE | 2021-09-04 10:20 | NUR ---
CT CALLED, PATIENT WAS TO HAVE SCAN DONE AT 9AM. [facility] STATES THEY HAVE BEEN BUSY WITH ED PATIENTS AND WILL COME FOR PATIENT SOON.
--- NOTE | 2021-09-04 10:55 | NUR ---
PATIENT TAKEN TO CT SCAN VIA WHEEL CHAIR AT THIS TIME. NG TUBE CLAMPED FOR PROCEDURE.
--- NOTE | 2021-09-04 10:56 | NUR ---
SPOUSE ARRIVED TO UNIT AT THIS TIME. UNABLE TO CONTACT HER LAST EVENING DUE TO HER LEAVING HER CELL PHONE IN PATIENT ROOM. EXPLAINED EVERYTHING TO SPOUSE AND PATIENT STATUS WITH HER.
--- NOTE | 2021-09-04 11:04 | NUR ---
PATIENT HAS BEEN STABLE THROUGH OUT SHIFT. CONTINUOUS COMPLAINTS OF ABDOMINAL PAIN, MEDICATION HAS BEEN GIVEN EVERY 2 HOURS NEEDED PER EMAR. NO MEASURABLE OUTPUT FROM NG. IV FLUIDS INFUSING ORDERED. TORIBIO CATHETER IN PLACE, DEPENDENT. VITALS WNL. A&O X4, PLEASANT. ABLE TO AMBULATE WITH USE OF WALKER, HAS NOT AMBULATED THIS SHIFT. WILL CONTINUE TO MONITOR
[2021-09-04 11:51] VITALS: BP 155/76; PULSE 84; TEMP 97.9
--- NOTE | 2021-09-04 12:54 | NUR ---
Financial Retirement Plan Specialist met with patient who was on the IPR unit, however was discharged to acute earlier today. [place] and [place] with his , Tsering and sees Dr. Stokes for primary care. Patient obtains medications from [facility] in and is in need of a front wheeled walker prior to discharge. SW obtained an order from [facility] and to send it to [facility]. Prior to coming to acute, patient was set for discharge from [facility] with orders for outpatient therapy. [facility] as [facility] has been there before. Patient's , Tsering is his DPOA-HC. SW will continue to monitor for discharge needs. Discharge Plan: From [facility], will follow for PT/OT recs
[2021-09-04 19:47] VITALS: BP 115/58; PULSE 68
[2021-09-04 20:00] VITALS: BP 112/58; PULSE 65; TEMP 98.6
--- NOTE | 2021-09-04 21:47 | NUR ---
PT LAYING IN BED RESTING QUIETLY. PT WITH EPIDURAL JAILER PUMP. PT DENIES ANY PAIN AT THIS TIME. TORIBIO IN PLACE DRAINING WELL. PT AT BEDSIDE.
[2021-09-04 23:51] VITALS: BP 117/63; PULSE 67; TEMP 99.2
[2021-09-05] VITALS (7 sets, daily range): BP systolic 117–141; BP diastolic 62–68; PULSE 63–676; TEMP 98.4–99.3
[2021-09-05 06:43] LABS: BASO % 0.2 % (0.0-2.0); GRAN # 8.8 K/mm3 (1.4-6.5); GRAN % 89.8 % (42.2-75.2); LYMPH # 0.4 K/mm3 (1.2-3.4); LYMPH % 4.4 % (20.0-51.0); MEAN CELL VOLUME 99 fl (80.0-100.0); MEAN CORPUSCULAR HGB CONC 32 g/dl (33.0-37.0); MEAN PLATELET VOLUME 8.9 fl (7.4-10.4); MONO # 0.5 K/mm3 (0.1-0.6); MONO % 5.2 % (1.7-9.3); PLATELET COUNT 275 K/mm3 (130-400); RED BLOOD COUNT 2.97 M/mm3 (4.20-5.60); REDCELL DISTRIBUTION WIDTH-CV 14.7 % (11.5-14.5)
[2021-09-05 06:45] LABS: HEMATOCRIT 29.4 % (42.0-52.0); HEMOGLOBIN 9.5 g/dl (13.5-18.0); MEAN CORPUSCULAR HEMOGLOBIN 32 pg (27-31)
[2021-09-05 07:12] LABS: CALCIUM 8.2 mg/dL (8.4-10.2); CREATININE, serum 1.01 mg/dL (0.72-1.25); POTASSIUM 5.1 mmol/L (3.5-4.5)
--- NOTE | 2021-09-05 09:00 | NUR ---
Pt doing well this morning. Having some pain complaints, but is using the epidural RETAIL ASSISTANT MANAGER which is working well for him. Abd incision dressing does have drainage. Dressing removed, incision well approximated with delores intact. Airstrip applied. Pt really wanting his NG tube out, no orders at this time. There is small amount of output, on LIS. PT has been in and worked with pt.
--- NOTE | 2021-09-05 10:25 | NUR ---
Notified Pancho, with ortho about pt being moved to surgical from [facility] and having surgery. Order to remove aquacell and leave hip incision open to air. OT has also worked with pt. Pt denies any needs, call light within reach
--- NOTE | 2021-09-05 11:06 | NUR ---
Head Of Training And Development contacted [facility] and faxed referral/order for FWW. SW also met with patient to review discharge plan. PT/OT recommend return to IPR. Patient is agreeable to this. SW contacted JENNIFER Lieberman Director and gave referral. Discharge Plan: IPR screen
--- NOTE | 2021-09-05 13:00 | NUR ---
Pt NG tube clamped recently per order. Educated pt that if he starts to feel sick that he needs to notify nursing. No other needs or questions. He does continue to use ICT TRAINER epidural for pain management
--- NOTE | 2021-09-05 14:04 | NUR ---
Follow-up visit; Patient thanked Truck Spotter for looking in on him again and wishing him well. Patient appears to be doing better.
--- NOTE | 2021-09-05 19:16 | NUR ---
BEDSIDE REPORT RECEIVED. PT LAYING IN BED RESTING QUIETLY. PT DENIES ANY PAIN AT THIS TIME. WILL CONTINUE TO MONITOR.
[2021-09-06 00:05] VITALS: BP 128/63; PULSE 69; TEMP 98.6
[2021-09-06 04:03] VITALS: BP 129/66; PULSE 61; TEMP 97.6
[2021-09-06 07:51] VITALS: BP 130/70; PULSE 60; TEMP 98.1
--- NOTE | 2021-09-06 09:00 | NUR ---
Pt doing okay this morning. He is really hoping to get the NG tube out today. Informed him we would have to wait on orders from Dr Reyes. Pt reports that his pain is not too bad, using DATA REPORT ANALYST epidural for pain management.
[2021-09-06 11:28] VITALS: BP 139/67; PULSE 63; TEMP 98
[2021-09-06 11:48] LABS: BASO # 0.1 K/mm3 (0.0-0.2); BASO % 0.9 % (0.0-2.0); EOS # 0.1 K/mm3 (0.0-0.7); EOS % 0.9 % (0.0-4.0); GRAN # 6.9 K/mm3 (1.4-6.5); GRAN % 79.6 % (42.2-75.2); HEMOGLOBIN 11.3 g/dl (13.5-18.0); LYMPH # 0.8 K/mm3 (1.2-3.4); LYMPH % 9.6 % (20.0-51.0); MEAN CELL VOLUME 97 fl (80.0-100.0); MEAN CORPUSCULAR HEMOGLOBIN 31 pg (27-31); MEAN CORPUSCULAR HGB CONC 32 g/dl (33.0-37.0); MEAN PLATELET VOLUME 9.8 fl (7.4-10.4); MONO # 0.7 K/mm3 (0.1-0.6); MONO % 7.9 % (1.7-9.3); PLATELET COUNT 227 K/mm3 (130-400); RED BLOOD COUNT 3.62 M/mm3 (4.20-5.60); REDCELL DISTRIBUTION WIDTH-CV 14.9 % (11.5-14.5)
--- NOTE | 2021-09-06 13:00 | NUR ---
Started pt on clear liquids, NG remains clamped with no complaints. Pt has been up walking in the halls with walker and assistance of one. Pain well managed
[2021-09-06 13:47] LABS: CALCIUM 8.5 mg/dL (8.4-10.2); CREATININE, serum 1.03 mg/dL (0.72-1.25); POTASSIUM 4.1 mmol/L (3.5-4.5)
[2021-09-06 16:00] VITALS: BP 127/75; PULSE 70; TEMP 98.7
--- NOTE | 2021-09-06 17:00 | NUR ---
Pt tolerating clear liquids. He has had some broth, juice and jello
[2021-09-06 19:44] VITALS: BP 151/72; PULSE 92; TEMP 98.6
[2021-09-07] VITALS (7 sets, daily range): BP systolic 130–154; BP diastolic 64–78; PULSE 64–95; TEMP 98.1–98.7
--- NOTE | 2021-09-07 01:51 | NUR ---
PATIENT IN BED ON ROOM ENTRY. ALERT AND ORIENTED. STATES HE WANTS THE NG TUBE OUT, PATIENT EDUCATION REGARDING NEED FOR ORDER BEFORE THIS CAN BE REMOVED. DENIES PAIN AT THIS TIME. HS MEDS PER EMAR. R HIP INCISION IS CDI AND COMMUNICATIONS PLANNER, EDGES WELL APPROXIMATED. MIDLINE DRESSING HAD DRAINAGE NOTED, KEYON INTACT, DRESSING CHANGE COMPLETED, AIRSTRIP IN PLACE. TORIBIO TO DD WITH CLEAR YELLOW URINE OUTPUT. NG TUBE REMAINS CLAMPED. CONTINUES TO TOLERATE CLEARS. EPIDURAL WAS TURNED OFF AT SHIFT CHANGE AND PATIENT IS TOLERATING THIS WITHOUT ISSUE. NO C/O PAIN. IV FLUIDS TO R FA. DENIES ADDITIONAL NEEDS.
--- NOTE | 2021-09-07 04:46 | NUR ---
PATIENT CALLED OUT INSISTING HIS NG TUBE COME OUT. STATES THAT HIS THROAT IS SORE FROM IT AND HE CANNOT SLEEP. CALL PLACED TO DR. VIDES, ORDER TO DISCONTINUE NG TUBE. NG TUBE REMOVED AT THIS TIME. PATIENT TOLERATED PROCEDURE.
[2021-09-07 08:50] LABS: BASO # 0.1 K/mm3 (0.0-0.2); BASO % 0.6 % (0.0-2.0); EOS # 0.1 K/mm3 (0.0-0.7); EOS % 1.3 % (0.0-4.0); GRAN % 81.6 % (42.2-75.2); HEMOGLOBIN 10.6 g/dl (13.5-18.0); LYMPH # 0.8 K/mm3 (1.2-3.4); LYMPH % 8.8 % (20.0-51.0); MEAN CELL VOLUME 98 fl (80.0-100.0); MEAN CORPUSCULAR HEMOGLOBIN 31 pg (27-31); MEAN CORPUSCULAR HGB CONC 32 g/dl (33.0-37.0); MEAN PLATELET VOLUME 8.6 fl (7.4-10.4); MONO # 0.6 K/mm3 (0.1-0.6); MONO % 7.1 % (1.7-9.3); PLATELET COUNT 291 K/mm3 (130-400); RED BLOOD COUNT 3.41 M/mm3 (4.20-5.60); REDCELL DISTRIBUTION WIDTH-CV 14.8 % (11.5-14.5)
[2021-09-07 08:57] LABS: HEMATOCRIT 33.3 % (42.0-52.0)
[2021-09-07 09:12] LABS: CALCIUM 8.1 mg/dL (8.4-10.2); CREATININE, serum 0.82 mg/dL (0.72-1.25); POTASSIUM 4.1 mmol/L (3.5-4.5)
--- NOTE | 2021-09-07 09:26 | NUR ---
EPIDURAL TAKEN OUT BY SONNY LUZSALON CUSTOMER EXPERIENCE SPECIALIST AT [facility]. 0900 WITH NO ISSUES. TORIBIO DISCONTINUED AFTER. DRESSING TAKEN OFF. INCISION OPEN TO AIR ORDERED. WILL MONITOR PATIENT.
--- NOTE | 2021-09-07 20:48 | NUR ---
PT RESTING IN BED. NO DISTRESS. VOIDING WITHOUT DIFFICULTY. NO N/V. OR PAIN AT THIS TIME. CALL LIGHT IN REACH. BED ALARM SET.
[2021-09-08 03:50] VITALS: BP 131/62; PULSE 64; TEMP 98.7
[2021-09-08 06:42] LABS: BASO # 0.1 K/mm3 (0.0-0.2); EOS # 0.3 K/mm3 (0.0-0.7); EOS % 5.6 % (0.0-4.0); GRAN # 4.2 K/mm3 (1.4-6.5); GRAN % 68.7 % (42.2-75.2); LYMPH # 0.9 K/mm3 (1.2-3.4); LYMPH % 14.8 % (20.0-51.0); MEAN CELL VOLUME 96 fl (80.0-100.0); MEAN CORPUSCULAR HGB CONC 32 g/dl (33.0-37.0); MEAN PLATELET VOLUME 8.9 fl (7.4-10.4); MONO # 0.6 K/mm3 (0.1-0.6); MONO % 9.4 % (1.7-9.3); PLATELET COUNT 266 K/mm3 (130-400); RED BLOOD COUNT 3.24 M/mm3 (4.20-5.60); REDCELL DISTRIBUTION WIDTH-CV 14.8 % (11.5-14.5)
[2021-09-08 06:45] LABS: HEMATOCRIT 31.2 % (42.0-52.0); HEMOGLOBIN 9.9 g/dl (13.5-18.0); MEAN CORPUSCULAR HEMOGLOBIN 31 pg (27-31)
[2021-09-08 06:54] LABS: CALCIUM 8.1 mg/dL (8.4-10.2); CREATININE, serum 0.8 mg/dL (0.72-1.25); POTASSIUM 3.7 mmol/L (3.5-4.5)
--- NOTE | 2021-09-08 07:17 | NUR ---
Shift report received from retail shift supervisor RN. Pt. resting supine in bed. HOB slightly elevated. Call light is within his reach
[2021-09-08 07:25] VITALS: BP 141/52; PULSE 71; TEMP 98
--- NOTE | 2021-09-08 07:38 | NUR ---
Pt. assisted to toilet using fww, gait belt, then to recliner. BLE elevated on foot rest. Midline abd. incision is CLASSROOM INSTRUCTOR & Rt. hip incision is DEEPAK. No redness, swelling, drainage noted from either incision. Pt. denies pain/discomfort. Denies nausea/abd. pain. Denies additional needs. Pt. has called dining services to order a full liquid breakfast. Call light is within his reach
--- NOTE | 2021-09-08 08:53 | NUR ---
Pt. up to ambulate in [place] with PT staff
--- NOTE | 2021-09-08 09:00 | NUR ---
ASSESSMENT DONE ORDER. PATIENT ALERT X4. ABLE TO TAKE MEDICATION WITH OUT ANY DIFFCULT. IV ON RIGHT AC WITH NO ISSUE. LUNG SOUND CLEAR IN ALL LOBES. BOWEL SOUND ACTIVE IN ALL LOBES. INCISION INTANT WITH NO REDNESS NOTED. EDEMA NOTED ON LOWER EXTREMITES.
[2021-09-08] MEDS ORDERED: NORCO 325 MG-51 TAB PO (11:50)
[2021-09-08] MEDS ORDERED: LOVENOX 4040 MG/0.4 SQ (11:50)
[2021-09-08] MEDS ORDERED: IPRATROPIUM BROM3 M1 IH (11:50)
[2021-09-08] MEDS ORDERED: ZOFRAN ODT4 MG PO (11:52)
--- NOTE | 2021-09-08 12:00 | NUR ---
Patient to discharge to [facility] today.
[2021-09-08] MEDS ORDERED: NS 1000 10001000 ML ×2 (13:26→13:27)
--- NOTE | 2021-09-08 14:04 | NUR ---
Pt discharged to IPR unit. Belonging gathered by nurse and SUPERINTENDENT GENERAL
== END 2021-09-08 13:50 | DRG 329 ==
LOC: SURG 01:00
PROVIDERS: Family Medicine; Physician Assistant; Student in an Organized Health Care Education/Training Program; Surgery; ADMIT Student in an Organized Health Care Education/Training Program
PROC: 0DS80ZZ Reposition Small Intestine, Open Approach (ICD-10-PCS; principal; 2021-09-04 15:00)
DX: K56.2 Volvulus (principal); K55.019 Acute (reversible) ischemia of small intestine, extent unspecified; N39.0 Urinary tract infection, site not specified; N17.9 Acute kidney failure, unspecified; Q76.6 Other congenital malformations of ribs; I25.10 Atherosclerotic heart disease of native coronary artery without angina pectoris; J44.9 Chronic obstructive pulmonary disease, unspecified; D69.6 Thrombocytopenia, unspecified; Z96.641 Presence of right artificial hip joint; R09.02 Hypoxemia; D64.89 Other specified anemias; R33.9 Retention of urine, unspecified; I89.8 Other specified noninfective disorders of lymphatic vessels and lymph nodes; M41.9 Scoliosis, unspecified; F41.9 Anxiety disorder, unspecified; I12.9 Hypertensive chronic kidney disease with stage 1 through stage 4 chronic kidney disease, or unspecified chronic kidney disease; N18.9 Chronic kidney disease, unspecified; Z23 Encounter for immunization; Z90.89 Acquired absence of other organs; Z79.82 Long term (current) use of aspirin
CPT/HCPCS: J0696; J1100; J1170; J1650; J2250; J2270; J2405; J2550; J2704; J2795; J3010; J7030; J7120; Q9967

== ENCOUNTER 2021-09-08 11:30 | Inpatient (IN) | payer MEDICARE, BC ==
[~2021-09-08] VITALS: Ht 190.5 cm; Wt 86.9 kg
[2021-09-08] MEDS ORDERED: LOVENOX 4040 MG/0.4 SQ (11:50)
[2021-09-08] MEDS ORDERED: NORCO 325 MG-51 TAB PO (11:50)
[2021-09-08] MEDS ORDERED: IPRATROPIUM BROM3 M1 IH (11:50)
[2021-09-08] MEDS ORDERED: ZOFRAN ODT4 MG PO (11:52)
[2021-09-08] MEDS ORDERED: NS 1000 10001000 ML ×2 (13:26→13:27)
--- NOTE | 2021-09-08 13:41 | NUR ---
Pt transferred to [facility] from Surgical. Admission assessment and intake completed. Orientation provided to room/unit. PT in for eval. Call light is within his reach.
[2021-09-08 13:56] VITALS: BP 132/84; PULSE 95; TEMP 97.7
--- NOTE | 2021-09-08 16:53 | NUR ---
Pt resting in recliner chair with BLE elevated. in room to visit. Pt. denies pain/discomfort. Diet was advanced to low fiber at lunch time. No nausea or abd. pain. Denies additional needs. Call light is within his reach.
[2021-09-08 17:18] VITALS: BP 119/71; PULSE 75; TEMP 97.5
--- NOTE | 2021-09-08 17:36 | NUR ---
Saline lock in RFA dc'd as ordered by physician. Pressure bandage applied over IV site. Will continue to monitor
[2021-09-08 18:07] VITALS: BP 119/71; PULSE 75; TEMP 97.5
--- NOTE | 2021-09-08 19:44 | NUR ---
RECEIVED CHANGE OF SHIFT REPORT FROM DAY SHIFT RN.
--- NOTE | 2021-09-09 00:45 | NUR ---
PATIENT SLEEPING WITH NONLABORED/EVEN RESPIRATIONS OBSERVED. DOES NOT WAKE WHEN ROOM ENTERED BY NURSING ON ROUNDS. BED EXIT ALARMS ON WITH CALL LIGHT WITHIN REACH.
--- NOTE | 2021-09-09 04:40 | NUR ---
RESTING IN BED WITH EXIT ALARM ON AND CALL LIGHT WITHIN REACH. DOES NOT WAKE WHEN ROOM ENTERED BY NURSING ON ROUNDS. BREATHING NONLABORED AND EVEN WHILE SLEEPING.
[2021-09-09 05:53] VITALS: BP 121/68; PULSE 74; TEMP 98.8
--- NOTE | 2021-09-09 06:30 | NUR ---
Shift report received from cnc machinist 2nd shift RN. Pt. awake and sitting in recliner. Call light is within his reach
--- NOTE | 2021-09-09 07:10 | NUR ---
CHANGE OF SHIFT REPORT GIVEN TO DAY SHIFT RNSTEPHENIE.
--- NOTE | 2021-09-09 12:41 | NUR ---
Steam Flattener prayed and offered support with patient while spouse was in room.
--- NOTE | 2021-09-09 14:19 | NUR ---
Pt resting in recliner with BLE elevated on foot rest. is in the room to visit. Pt. denies pain/discomfort. Denies additional needs. Call light is within his reach
--- NOTE | 2021-09-09 15:25 | NUR ---
SW completed intake with patient. Patient states that he lives in [place], [place] with Tsering [phone]. Patient states he uses a walker, is independent with ADL's, and does not utilize any HH services at this time. PCP is Dr. Knowles, and pharmacy is [facility]. is appointed DPOA/HC. Patient states that his plan is to return to his home upon DC. SW will continue to follow. DC plan: home
--- NOTE | 2021-09-09 16:31 | NUR ---
Pt. assisted to bed from recliner using fww and gait belt. remains in the room to visit. Pt. denies pain/discomfort. Denies additional needs. Call light is within his reach
[2021-09-09 16:36] VITALS: BP 127/68; PULSE 70; TEMP 98.6
--- NOTE | 2021-09-09 18:35 | NUR ---
RECEIVED CHANGE OF SHIFT REPORT FROM DAY SHIFT RN. PATIENT RESTING IN BED DURING REPORT WITH EXIT ALARM ON AND CALL LIGHT WITHIN REACH.
[2021-09-10 05:18] VITALS: BP 121/69; PULSE 71; TEMP 98.8
--- NOTE | 2021-09-10 07:23 | NUR ---
CHANGE OF SHIFT REPORT GIVEN TO DAY SHIFT RNRICO. PATIENT UP WITH ASSIST X1 WITH NO DIFFICULTY WITH AMBULATION PRIOR TO BEDTIME LAST NIGHT. DENIED ANY NEEDS OR COMPLAINTS THROUGHOUT THE NIGHT.
--- NOTE | 2021-09-10 08:30 | NUR ---
Pt doing well this morning. He has had breakfast with no complaints. Bowel sounds are active and pt reports having bowel movements/passing gas. Incision is well approximated with delores intact. Pt currenty sitting up in his chair dressed for the day. Pt stated that he has some pain in the abd incision, but that it is tolerable and denies needing anything for pain. No needs at this time, call light within reach
[2021-09-10 18:00] VITALS: BP 119/68; PULSE 65; TEMP 98.1
--- NOTE | 2021-09-10 18:42 | NUR ---
RECEIVED CHANGE OF SHIFT REPORT FROM DAY SHIFT RN.
[2021-09-11 05:17] VITALS: BP 121/64; PULSE 70; TEMP 98.5
[2021-09-11 06:41] LABS: BASO # 0.1 K/mm3 (0.0-0.2); EOS # 0.4 K/mm3 (0.0-0.7); EOS % 6.9 % (0.0-4.0); GRAN # 3.9 K/mm3 (1.4-6.5); GRAN % 66.6 % (42.2-75.2); LYMPH # 0.9 K/mm3 (1.2-3.4); LYMPH % 15.1 % (20.0-51.0); MEAN CELL VOLUME 97 fl (80.0-100.0); MEAN CORPUSCULAR HGB CONC 32 g/dl (33.0-37.0); MEAN PLATELET VOLUME 9.1 fl (7.4-10.4); MONO # 0.6 K/mm3 (0.1-0.6); MONO % 9.9 % (1.7-9.3); PLATELET COUNT 227 K/mm3 (130-400); RED BLOOD COUNT 3.01 M/mm3 (4.20-5.60); REDCELL DISTRIBUTION WIDTH-CV 15.2 % (11.5-14.5)
[2021-09-11 06:55] LABS: HEMATOCRIT 29.3 % (42.0-52.0); HEMOGLOBIN 9.4 g/dl (13.5-18.0); MEAN CORPUSCULAR HEMOGLOBIN 31 pg (27-31)
--- NOTE | 2021-09-11 07:09 | NUR ---
CHANGE OF SHIFT REPORT GIVEN TO DAY SHIFT RNRICO.
[2021-09-11 07:18] LABS: CALCIUM 8.3 mg/dL (8.4-10.2); CREATININE, serum 0.91 mg/dL (0.72-1.25); MAGNESIUM 1.7 mg/dL (1.6-2.6); POTASSIUM 3.7 mmol/L (3.5-4.5)
--- NOTE | 2021-09-11 07:30 | NUR ---
Pt sitting up on the side of the bed eating his breakfast. Pt does have bed alarm on. Pt does not like it as he stated when he has to go to the bathroom, it is urgent. Informed him he needs to use the light and that we would then get there as soon as we could but that the alarm helps notify others. Did assist pt to the restroom at this time. He did okay and was pretty steady on his feet with a walker. Having some pain complaints, did give pain medication prior to his therapy today. No other needs
--- NOTE | 2021-09-11 13:30 | NUR ---
Pt continues to do well. He has been working well with therapy so far today. Did give pt pain medication at this time, reports that his hip is bothering him some. Pts is at bedside. Discussed stool softners if her feels he needs them. Pt reports that he does not think so at this time. States that he is not having a bowel movement each time he urinates any more. No other needs, will continue to monitor. Pt sitting up in chair with chair alarm on
--- NOTE | 2021-09-11 15:15 | NUR ---
YUDI contacted [facility] to follow up about the FWW that was ordered when he was on the acute side. [facility] reports that they received the order and the FWW order is ready to be picked up. YUDI met with the patient and his , Tsering, to update and introduce oneself. The patient states that he is doing well. Tsering states that the patient has picked up from where he was at after his last surgery. Tsering plans to continuous pickling line pickler helper the FWW from [facility]. YUDI provided Tsering [facility]'s address and phone number.
--- NOTE | 2021-09-11 15:58 | NUR ---
Admission QIM scores were reviewed by the team. Code of 6 chosen for oral hygiene was determined by team discussion to be the most usual performance for this patient during the assessment period. Code of 4 chosen for sit to lying was determined by team discussion to be the most usual performance before interventions for this patient during the assessment period. Code of 4 chosen for lying to sitting on side of bed was determined by team discussion to be the most usual performance for this patient during the assessment period.--Luisana Davis, PD
[2021-09-11 17:07] VITALS: BP 123/65; PULSE 76; TEMP 98.1
--- NOTE | 2021-09-11 18:48 | NUR ---
Pt reporting that he feels like he needs to have a bowel movement, but just can't PRN colace given at this time. Pt denies any other needs, reports pain is tolerable at this time
[2021-09-12 05:29] VITALS: BP 123/59; PULSE 65; TEMP 98.4
--- NOTE | 2021-09-12 06:58 | NUR ---
Shift report received from angiography technologist RN. Pt. awake and resting supine in bed. Denies pain/discomfort. Denies additional needs. Call light is within his reach
--- NOTE | 2021-09-12 09:07 | NUR ---
Pt assisted from recliner to bathroom using fww and gait belt. OT in room to assist with showering and hygiene. Pt. denies pain/discomfort. Pain medication was given with a.m. medications and breakfast. Denies further needs
--- NOTE | 2021-09-12 11:58 | NUR ---
Pt resting in recliner. BLE elevated on footrest. is in his room to visit. Pt. denies pain/discomfort. Denies additional needs. Call light is within his reach
[2021-09-12 17:16] VITALS: BP 141/67; PULSE 71; TEMP 98.3
--- NOTE | 2021-09-12 19:00 | NUR ---
RECEIVED CHANGE OF SHIFT REPORT FROM DAY SHIFT RN.
[2021-09-13 05:40] VITALS: BP 121/53; PULSE 68; TEMP 98.3
--- NOTE | 2021-09-13 06:51 | NUR ---
CHANGE OF SHIFT REPORT GIVEN TO DAY SHIFT RNs, DOUG.
--- NOTE | 2021-09-13 08:43 | NUR ---
BEDSIDE REPORT DONE.PATIENT RESTING WELL LAST NIGHT WITH OUT ANY ISSUE. CALL LIGHT IN REACH.
--- NOTE | 2021-09-13 10:52 | NUR ---
ASSESSMENT DONE. PATIENT ALERT X4.ABLE TO MAKE NEEDS KNOWN. PATIENT LUNG SOUND CLEAR.BOWEL SOUND ACTIVE. PATIENT ABLE TO GET UP WITH WALKER. HANDS STRENGTH IS GOOD. ABLE TO CLERK MANAGER LEGS WITH OUT ANY ISSUE. NO PAIN NOTED AT THIS TIME.
--- NOTE | 2021-09-13 14:36 | NUR ---
YUDI met with the patient and his , Tsering, to present and review the IPR Team Conference Note. The team has set a discharge date for this Saturday, 09/15, with outpatient PT. They recommend a FWW and shower seat. The patient and his are in agreement to the plan and would like to do outpatient PT at [facility]. Tsering reports that she already picked up and got the FWW and shower seat. YUDI presented and read the IM form outloud to the patient and his . The patient verbalized understanding and signed the form. YUDI provided him with a copy. YUDI contacted Yuko at [facility] and secured the patient a PT appointment on 09/19 at 6695. YUDI notified the community services coordinator. The patient's orders will need to be faxed to [facility] at [phone].
[2021-09-13 17:24] VITALS: BP 118/71; PULSE 73; TEMP 98.1
--- NOTE | 2021-09-13 19:00 | NUR ---
RECEIVED CHANGE OF SHIFT REPORT FROM DAY SHIFT RN.
--- NOTE | 2021-09-14 00:23 | NUR ---
PATIENT SLEEPING, WAKES WITH VOIDING, UP IN ROOM PER SELF WITH NO REPORTED PROBLEMS WITH AMBULATING IN ROOM PER SELF. CALL LIGHT WITHIN REACH.
[2021-09-14 05:34] VITALS: BP 114/59; PULSE 74; TEMP 97.6
[2021-09-14 05:36] VITALS: BP 142/68; PULSE 84; TEMP 97.6
--- NOTE | 2021-09-14 07:22 | NUR ---
CHANGE OF SHIFT REPORT GIVEN TO DAY SHIFT DEREK DENNIS.
--- NOTE | 2021-09-14 08:29 | NUR ---
PT SITTING UP IN RECLINER EATING BREAKFAST. MORNING MEDICATIONS GIVEN. SHIFT ASSESSMENT COMPLETED. PT DENIES ANY PAIN AT THIS TIME. IN PLEASANT MOOD, COMPLAINS OF BED NOT WORKING, WILL PLACE WORK ORDERS. CONTINUING TO MONITOR.
--- NOTE | 2021-09-14 09:18 | NUR ---
NEW BED PLACED IN PT ROOM.
[2021-09-14] MEDS ORDERED: LIPITOR20 MG PO (16:35)
[2021-09-14] MEDS ORDERED: MIRALAX PA17 GM/Dose PO (16:37)
[2021-09-14] MEDS ORDERED: DULCOLAX STOOL100 MG PO (16:37)
[2021-09-14] MEDS ORDERED: SENOKOT S 50 MG1 TAB PO (16:38)
--- NOTE | 2021-09-14 17:13 | NUR ---
PT HAD UNEVENTFUL DAY. EAGER FOR D/C TOMORROW.
[2021-09-14 17:42] VITALS: BP 134/74; PULSE 103; TEMP 98.5
[2021-09-15 05:27] VITALS: BP 138/64; PULSE 63; TEMP 98.7
--- NOTE | 2021-09-15 05:59 | NUR ---
pt slept well this shift, calls to have urinal emptied, otherwise independent. no c/o pain or discomfort.
--- NOTE | 2021-09-15 06:46 | NUR ---
BEDSIDE REPORT DONE. PATIENT RESTING IN BED WITH CALL LIGHT IN REACH
--- NOTE | 2021-09-15 07:51 | NUR ---
ASSESSMENT DONE. PATIENT ALERT AND ORIENT X 3 WITH NO PAIN NOTED. PATIENT GOING HOME TODAY. URINE ABOUT 300CC THIS AM. LUNG CLEAR IN ALL LOBES. BOWEL SOUND ACTIVE IN ALL 4 QUAD. PATIENT ATE 60% OF HIS MEAL THIS MORNING. PATIENT MOD I IN BED. CALL LIGHT IN REACH. PHONE IS IN REACH
[2021-09-15] MEDS ORDERED: NORCO 325 MG-51 TAB PO (09:52)
--- NOTE | 2021-09-15 09:58 | NUR ---
The patient is to discharge back home with his today, 09/15, with outpatient PT at [facility]. SW faxed the patient's orders to [facility]. No additional needs at this time.
--- NOTE | 2021-09-15 12:00 | NUR ---
patient was discharge at 11:58am with , patient was in wheelchair and all his belonging was cotton picker by his . patient has no concern or question and understood all his appointment. Insturction on new medicaiton and pain was given. Inform of address of all doctor appointment.
== END 2021-09-15 11:58 | disposition home or self-care (01) | DRG 948 ==
PROVIDERS: Internal Medicine; ADMIT Physical Medicine & Rehabilitation Sports Medicine
DX: R53.81 Other malaise (principal); K55.8 Other vascular disorders of intestine; K55.1 Chronic vascular disorders of intestine; R11.2 Nausea with vomiting, unspecified; Z96.641 Presence of right artificial hip joint; R33.9 Retention of urine, unspecified; R26.89 Other abnormalities of gait and mobility; H91.93 Unspecified hearing loss, bilateral; D64.89 Other specified anemias; F41.9 Anxiety disorder, unspecified; N18.9 Chronic kidney disease, unspecified; D69.6 Thrombocytopenia, unspecified; I25.10 Atherosclerotic heart disease of native coronary artery without angina pectoris; J44.9 Chronic obstructive pulmonary disease, unspecified; Z79.82 Long term (current) use of aspirin; Z79.891 Long term (current) use of opiate analgesic; Z79.899 Other long term (current) drug therapy; Z73.6 Limitation of activities due to disability
CPT/HCPCS: 99232-AI; J1650

== ENCOUNTER 2022-11-09 07:18 | Day surgery (SDC) | payer MEDICARE, BC ==
[~2022-11-09] VITALS: Ht 188 cm; Wt 80.1 kg
[~2022-11-09 07:18] MED LIST changes: +CRESTOR 10MG10 MG; +DULCOLAX STOOL100 MG PO; +IPRATROPIUM BROM3 M1 IH; +LIPITOR20 MG PO; +LOVENOX 4040 MG/0.4 SQ; +MIRALAX PA17 GM/Dose PO; +NORCO 325 MG-51 TAB PO; +NS 1000 10001000 ML; +SENOKOT S 50 MG1 TAB PO; +ZOFRAN ODT4 MG PO
[2022-11-09 07:41] VITALS: BP 160/84; PULSE 68; TEMP 97.2
[2022-11-09] MEDS ORDERED: SINGULAIR 110 MG/TAB (07:56)
--- NOTE | 2022-11-09 08:13 | NUR ---
PATIENT AMBULATED TO BAY 9 WITH SLOW GAIT. ALERT AND ORIENTED X4. STATED UNDERSTANDING OF PROCEDURE. CONSENTS SIGNED. ASSESSMENT COMPLETED. WARM BLANKET PROVIDED. NO FURHTER NEEDS NOTED AT THIS TIME. RESTING IN RECLINER. CALL LIGHT IN REACH. AT BEDSIDE.
[2022-11-09 10:04] VITALS: BP 124/72; PULSE 61; TEMP 96.7
[2022-11-09 10:15] VITALS: BP 144/88; PULSE 60
--- NOTE | 2022-11-09 14:59 | NUR ---
1004- PATIENT RETURNS TO [facility] VIA CART. PT AWAKE AND ALERT. RESPIRATIONS UNLABORED. AMBULATED TO RECLINER CHAIR WITH 2:1 SBA. PT DENIES NAUSEA OR ABDOMINAL PAIN. HOOKED UP TO MONITOR AND VS OBTAINED. CALL LIGHT AT SIDE AND FAMILY PRESENT. 1013- PATIENT TOLERATING ORANGE JUICE AND MUFFIN WITHOUT NAUSEA OR PAIN. 1015- DR. WALTER IN ROOM SPEAKING WITH PATIENT. 1020- D/C INSTRUCTIONS REVIEWED WITH PATIENT. PT VERBALIZED UNDERSTANDING AND A COPY OF INSTRUCTIONS PROVIDED IN D/C FOLDER. 1030- PT DRESSED SELF WITH ASSISTANCE FROM . 1040- PATIENT DISCHARGED FROM UNIT VIA W/C TO A PERSONAL VEHICLE. PT LEFT HOSPITAL IN STABLE CONDITION.
== END 2022-11-09 10:40 | disposition home or self-care (01) ==
LOC: SDCO 07:18
DX: R19.7 Diarrhea, unspecified (principal); R15.2 Fecal urgency; K57.30 Diverticulosis of large intestine without perforation or abscess without bleeding
CPT/HCPCS: J2704; J7120

== ENCOUNTER 2023-06-26 17:44 | Observation (INO) | payer MEDICARE, BC ==
[~2023-06-26] VITALS: Ht 182.9 cm; Wt 77.3 kg
[~2023-06-26 17:44] MED LIST changes: +SINGULAIR 110 MG/TAB PO
[2023-06-26] MEDS ORDERED: Ondansetron 4 MG/2 ML VIAL IV ONE (18:15)
[2023-06-26] MEDS ORDERED: LR 1,000 ML IV ONE (18:15)
[2023-06-26] MEDS ORDERED: Morphine 4 MG/ML VIAL IV ONE (18:15)
[2023-06-26 18:20] LABS: BASO # 0.1 K/mm3 (0.0-0.2); BASO % 0.6 % (0.0-2.0); EOS # 0.1 K/mm3 (0.0-0.7); EOS % 0.5 % (0.0-4.0); GRAN # 8.1 K/mm3 (1.4-6.5); GRAN % 82.2 % (42.2-75.2); HEMOGLOBIN 14.1 g/dl (13.5-18.0); LYMPH % 9.6 % (20.0-51.0); MEAN CELL VOLUME 98 fl (80.0-100.0); MEAN CORPUSCULAR HEMOGLOBIN 32 pg (27-31); MEAN CORPUSCULAR HGB CONC 33 g/dl (33.0-37.0); MONO # 0.7 K/mm3 (0.1-0.6); MONO % 6.7 % (1.7-9.3); PLATELET COUNT 164 K/mm3 (130-400); REDCELL DISTRIBUTION WIDTH-CV 15.3 % (11.5-14.5)
[2023-06-26 18:38] LABS: ALBUMIN 3.4 g/dL (3.4-4.8); BILIRUBIN,TOTAL 0.6 mg/dL (0.2-1.2); C-REACTIVE PROTEIN 0.6 mg/dL (0.00-0.50); CALCIUM 9.4 mg/dL (8.4-10.2); CREATININE, serum 1.3 mg/dL (0.72-1.25); POTASSIUM 4.5 mEq/L (3.5-4.5); TOTAL PROTEIN 6.7 g/dl (6.2-8.1)
[2023-06-26] MEDS ORDERED: Iohexol 300 - 100 ML VIAL IV ONE (19:09)
[2023-06-26] MEDS ORDERED: NS 50 ML IV ONE (19:10)
[2023-06-26] MEDS ORDERED: HYDROmorphone 0.5 MG/0.5 ML SYRINGE IV ONE ×2 (19:15→19:45)
[2023-06-26 21:00] VITALS: BP_SYST 163
[2023-06-26] MEDS ORDERED: Ondansetron 4 MG/2 ML VIAL IV PRN (21:30)
[2023-06-26] MEDS ORDERED: HYDROmorphone 0.5 MG/0.5 ML SYRINGE IV PRN (21:30)
[2023-06-26] MEDS ORDERED: LR 1,000 ML IV SCH (21:30)
--- NOTE | 2023-06-26 22:22 | NUR ---
pt arrived to room 327 at 2140. pt reporting pain medications given in ER have relieved his abd pain. pt reporting some discomfort to lower back based on position, ice pack administered. admission, physical assessment, and med rec compelete. call light in reach. all needs met at this time.
[2023-06-26 22:24] VITALS: BP 163/98; PULSE 75; TEMP 97.7
[2023-06-27] VITALS (13 sets, daily range): BP systolic 110–148; BP diastolic 52–87; PULSE 53–79; TEMP 97.8–98.7
[2023-06-27 07:11] LABS: BASO % 0.7 % (0.0-2.0); EOS # 0.1 K/mm3 (0.0-0.7); EOS % 0.9 % (0.0-4.0); GRAN % 69.5 % (42.2-75.2); LYMPH # 0.9 K/mm3 (1.2-3.4); MEAN CELL VOLUME 97 fl (80.0-100.0); MEAN CORPUSCULAR HGB CONC 33 g/dl (33.0-37.0); MEAN PLATELET VOLUME 9.7 fl (7.4-10.4); MONO # 0.7 K/mm3 (0.1-0.6); MONO % 12.6 % (1.7-9.3); PLATELET COUNT 145 K/mm3 (130-400); RED BLOOD COUNT 3.74 M/mm3 (4.20-5.60); REDCELL DISTRIBUTION WIDTH-CV 15.2 % (11.5-14.5)
[2023-06-27 07:15] LABS: HEMATOCRIT 36.3 % (42.0-52.0); MEAN CORPUSCULAR HEMOGLOBIN 32 pg (27-31)
[2023-06-27] MEDS ORDERED: TRELEGY ELLIPT1 EAC1 IH (08:30)
--- NOTE | 2023-06-27 11:00 | NUR ---
PT LAYING IN BED, ALERT AND ORIENTEDX4. NO NAUSEA OR PAIN THIS MORNING.PT HAS BEEN UP WALKING TO BATHROOM AND HAS VOIDED. PT HAS NO PASSED ANY GAS TODAY. ASSESSED. CALL LIGHT WITHIN REACH.
--- NOTE | 2023-06-27 12:44 | NUR ---
hall worker met with pt and his , Tsering to discuss discharge planning. They live together in [place] with Mariola sanches. Pt sees Dr. Francis and obtains medications from [facility] with no difficulties. Pt reports to be independent with ADLS and uses a cane for DME. He reports no concerns with mobility as he knows to go slow and be safe. SW verified DPOA-HC on file listing and [facility] as agents. Pt reports he is feeling better and has no yet seen the doctor. YUDI advised he either comes alteration manager or late afternoon due to scheduling. YUDI spoke with RN who has no concerns for pt's mobility. She confirms the has not yet been around. Discharge Plan: home
--- NOTE | 2023-06-27 14:04 | NUR ---
Initial visit; Patient thanked for looking in on him and listening and speaking clearly enough so he is able to hear and understand her. Patient disappointed that his won't be here until 5:30 pm and he is bored. He can't hear tv and only has his cell phone. He said he can at least read the Bible on his phone. mentioned that he might just give some thought to just resting. He said that is hard for him.
[2023-06-27] MEDS ORDERED: Montelukast 10 MG TAB PO SCH (16:37)
[2023-06-27] MEDS ORDERED: Fluticasone/Umeclidinium/Vilanterol **** subs to Budesonide + Umeclid/Vilant IH SCH (16:38)
[2023-06-28 01:12] VITALS: BP_SYST 143
--- NOTE | 2023-06-28 01:51 | NUR ---
NURSING SHIFT ASSESSMENT COMPLETED. THE PATIENT IS ALERT AND ORIENTED. THE PATIENT DENIED PAIN OR DISCOMFORT. NO NAUSEA OR VOMITING NOTED. THE PLAN OF CARE WAS REVIEWED AND NO NEEDS MENTIONED WHEN ASKED IF HE HAD ANY. THE CALL LIGHT IS WITHIN REACH. THE BED IS IN THE LOW POSITION. THE BED ALARM IS ON.
[2023-06-28 03:44] VITALS: BP 124/72; PULSE 62; TEMP 97.8
[2023-06-28 05:00] VITALS: BP_SYST 124
[2023-06-28 08:30] VITALS: BP 122/64; PULSE 65; TEMP 98
[2023-06-28] MEDS ORDERED: Patient's Own Medication Item IH SCH (09:00)
[2023-06-28 09:41] VITALS: BP_SYST 122
--- NOTE | 2023-06-28 09:42 | NUR ---
Pt. sitting up in bed. Pt. is A&OX3, assessment complete. INT to lt. ac patent. Pt. tolerating breakfast this am. Pt. reports "It hit the spot". Pt. denies pain or other needs, call light within reach.
--- NOTE | 2023-06-28 12:35 | NUR ---
Pt. ready for discharge. INT discontinued from lt. ac. Reviewed and gave discharge paperwork to the pt. and his . Pt. and voice understanding. Pt. dressed and escorted out by wheelchair.
== END 2023-06-28 12:30 | disposition home or self-care (01) ==
LOC: COL.ER 17:44 → EDBEDREQ 21:32 → EDBEDREQTM 21:32 → SDCO 21:33 → SURG 21:33 → SDCO 21:40 → SURG 21:41 → SDCO 06-28 12:22 → SURG 06-28 12:22
PROVIDERS: Family Medicine; ADMIT Surgery
DX: K56.2 Volvulus (principal); R19.09 Other intra-abdominal and pelvic swelling, mass and lump
CPT/HCPCS: OP; G0378; J1170; J2270; J2405; J7120; Q9967